=== PATIENT | male | born 1955 | race Caucasian/White ===

== ENCOUNTER 2020-09-12 14:43 | Emergency (ER) | payer OTHER, SELFPAY ==
[2020-09-12 14:44] VITALS: BP 139/90; PULSE 65; RESP 16; TEMP 36.8; O2SAT 98; BMI 26.4
--- NOTE | 2020-09-12 15:00 | EDS_ITS ---
HPI History of Present Illness Chief Complaint: Trauma Narrative Narrative: 65-year-old male presenting with right hand pain with multiple lacerations. Patient states that he was sticking his hand in some kind of exhaust vent and apparently there was a fan inside. He believes it hit his hand. He is really unsure if he went far enough to hit the blade or if he just hit a wire. Patient has multiple lacerations to the right hand as well as inability to extend his right fifth finger. Patient is right-hand dominant. He is not on anticoagulation. Last tetanus is unknown. PFSH PFSH Allergy/AdvReac Type Severity Reaction Status Date / Time No Known Allergies Allergy Verified 09/12/20 14:46 Social History Smoking Status: Never smoker ROS ROS ED Constitutional Constitutional ED: Denies fever(s) or subjective Eyes Eyes: Denies blurry vision or change in vision ENT ENT ED: Denies ear pain or rhinorrhea Cardiovascular Cardiovascular: Denies chest pain or palpitations Respiratory/Chest Respiratory/Chest: Denies cough or dyspnea Gastrointestinal Gastrointestinal: Denies abdominal pain, nausea or vomiting Genitourinary Genitourinary ED: Denies dysuria or hematuria Musculoskeletal Musculoskeletal: Reports other Details: Right hand pain Integumentary Reports other Details: Multiple lacerations to right hand with inability to extend right fifth digit Neurologic Neurologic: Denies headache(s) or weakness Psychiatric Psychiatric: Denies anxiety or depression EXAM Physical Exam Const Vital Signs: 09/12/20 14:44 Temperature 98.2 F Temperature Source Temporal Pulse Rate 65 Respiratory Rate 16 Blood Pressure 139/90 H Blood Pressure Mean 106 Pulse Ox 98 Oxygen Delivery Method Room Air Positive well nourished General Appearance ED: NAD HEENT atraumatic Eyes PERRL Resp normal respiratory effort and clear to auscultation bilaterally Cardio regular rhythm Rate: regular rate GI normal to inspection, nondistended, normoactive bowel sounds Extremity Extremity Narrative: Right hand third digit has medial distal avulsion of the skin and portion of nail with superficial abrasions proximally. Sensation and motor are intact. Right hand fourth digit has a laceration through the central nailbed horizontally extending to the lateral aspect of the finger with superficial abrasions and smaller lacerations proximally. Motor and sensation are intact. Right hand fifth digit has a laceration extending over the PIP horizontally which appears into the joint as well as a longitudinal laceration extending proximally to distally just distally to the nail bed to just distally to the PIP. Patient unable to extend the fifth digit from the PIP. Sensation is intact. Neuro oriented x3 Sensorium / Orientation: alert Psych mental status grossly normal and thought process normal MDM MDM MDM Narrative Medical decision making narrative: Patient has multiple lacerations over the hand as described under physical exam. Definitely is a laceration to the right fifth digit on the right hand has involvement of the joint and PIP. On x-ray there does not appear to be any bony injury however there is an obvious flexion deformity with a subluxation at the PIP. Given this finding I do believe there is involvement of the joint with a laceration. I discussed this with the patient and told him this would likely need to be surgically washed out. I discussed the case with [facility] who accepted admission ED to ED and will have orthopedics see the patient to determine the need for washout. Patient's wounds were dressed and he was placed in Rock wrap. He did not want to be sent by ambulance and he has someone with him who can drive him. I did discuss this with [facility] and they were amenable to this given that he does not have any significant bleeding and does not have any trauma elsewhere. Patient was transferred in stable condition. Impression: 1. Avulsion laceration right hand third digit 2. Nailbed laceration right hand fourth digit 3. Laceration right fifth digit involving PIP joint 4. Extensor tendon laceration right fifth digit 5. 2 cm laceration right fifth digit not involving nail bed Radiography Diagnostic Testing: Radiology Impression Hand X-Ray 09/12/20 15:16 IMPRESSION: Soft tissue laceration overlying the second third and fourth digits with flexion deformity and subluxation of the proximal interphalangeal joint of the fifth digit. Electronically Signed: Anant Shipley MD at 15:48 EDT , Service support , Discharge Plan Triage Chief Complaint: Trauma ED Provider: Kulwant Lawson Dx/Rx/DC Orders Instructions: ED Tendon Laceration Primary Care Provider: Ava Pinto Referrals: Ava Pinto MD [Primary Care Provider] - Disposition Disposition: Transfer to Another Type HCF Discharge Location: [facility] Discharge Date/Time: 09/12/20 16:24
[2020-09-12] MEDS: Diphth,Pertuss(Acell),Tet Vac 0.5 ML Vial IM (15:12)
--- NOTE | 2020-09-12 15:16 | RAD_ITS ---
STUDY: X-RAY - RIGHT HAND REASON FOR EXAM: Male, 65 years old. Pain TECHNIQUE: 3 view(s) of the hand. COMPARISON: None. FINDINGS: Normal radiocarpal articulation. Normal distal radioulnar joint. Normal visualized carpal bones. Normal carpal articulations Normal carpometacarpal articulation of the thumb. Normal second through fifth carpometacarpal joints. Normal metacarpi. Normal metacarpophalangeal joint of the thumb. Normal interphalangeal joint of the thumb. Normal proximal and distal phalanges of the thumb. Normal metacarpophalangeal joints of the second through fifth fingers. There is diffuse articular joint space narrowing of the proximal and distal interphalangeal joints of the second through fifth fingers, but without erosive changes or periarticular soft tissue swelling. Flexion deformity of the proximal interphalangeal joint of the fifth digit. There is evidence of a subluxation at the proximal interphalangeal joint of the fifth digit. Normal phalanges of the second through fifth fingers. Soft tissue laceration overlying the distal aspects of the second third and fourth digits. RAD/Hand Min 3 Views IMPRESSION: Soft tissue laceration overlying the second third and fourth digits with flexion deformity and subluxation of the proximal interphalangeal joint of the fifth digit. Electronically Signed: Anant Shipley MD at 15:48 EDT , Service support ,
== END 2020-09-12 16:24 | disposition other institution (70) ==
PROVIDERS: Emergency Provider Student in an Organized Health Care Education/Training Program; PCP Family Medicine
DX: S61.212A Laceration without foreign body of right middle finger without damage to nail, initial encounter (principal); S61.214A Laceration without foreign body of right ring finger without damage to nail, initial encounter; S61.216A Laceration without foreign body of right little finger without damage to nail, initial encounter; X58.XXXA Exposure to other specified factors, initial encounter
CPT/HCPCS: 73130; 90715; 96372; 99285